=== PATIENT | female | born 1965 | race Caucasian/White ===

== ENCOUNTER 2018-07-30 07:30 | Inpatient (IN) | payer BC, OTHER ==
--- NOTE | 2018-07-28 23:23 | PREOPHP ---
DATE OF ADMISSION: 07/30/2018 She is coming on Sunday, the , at 7:30 in the morning for surgery. HISTORY OF PRESENT ILLNESS: This is a 53-year-old female, 2, para 2. The patient with a fam dalia history of ovarian cancer. The patient had tested positive for BRCA2 only, and she was referred by her PCP for ovarian excision with a history of COPD, nonsmoking for 1 year. She had been schedule d for TAHBSO due to her family history and for her testing. The patient will undergo full TAHBSO. T he patient had a right lower lobectomy with pneumothorax due to pneumothorax and she had a fusion of her neck and lower back, right hip fracture and she had a mini lap tubal ligation and she has a histo ry of rosacea. ALLERGIES: TORADOL AND TALWIN. MEDICATIONS: She is on gabapentin and albuterol. SOCIAL HISTORY: She is smoking marijuana. FAMILY HISTORY: Ovarian cancer. PHYSICAL EXAMINATION: GENERAL APPEARANCE: The patient is good ____ mouth and teeth held. VITAL SIGNS: Stable. The blood pressure 120/80, pulse is 80, respirations 16. She is afebrile. Darron elliott weighs 138 and she is 5 feet 4 inches. HEAD AND NECK: Normal. BREASTS: Soft, nontender, no masses. CHEST: Clear. HEART: Normal sinus rhythm. LUNGS: Clear. ABDOMEN: Soft, nontender, no masses. PELVIC: The external genitalia is atrophic. Cervix is healthy. Uterus retroverted, flexed, nonprol apsed, about 8 weeks' size, painful. Adnexa are negative. EXTREMITIES: Negative. REVIEW OF SYSTEMS: Heart disease is negative. Lung disease, GI problem is none present. No history of endocrine disease, urological, or neurological disease. She has a history of ____ rosacea. DIAGNOSES: BRCA2 positive family history of ovarian cancer; COPD; degenerative bone disease; cervica l fusion; lumbar fusion; right lower lung lobectomy, laparoscopic; right hip fracture; recurrent skin disease and status post mini lap tubal ligation. PLAN: She is undergoing a TAHBSO. The patient has been advised of the possible risks and possible c omplications of the procedure with her alternatives and options. Written information was provided. She had no more questions and agreed to go ahead with the procedure with full understanding and no mo re questions. Dictated By: RADHA KNIG/KYA Conf#: [id number] DID#: [id number]
[~2018-07-30] VITALS: Ht 162.6 cm; Wt 60.9 kg
[~2018-07-30 07:30] MED LIST: CARI350T29 PO; HYDR-3980 PO; HYDR-4011 PO; ONDA4TAB14 PO
--- NOTE | 2018-08-23 23:26 | PREOPHP ---
DATE OF ADMISSION: 07/30/2018 DATE OF PROCEDURE: The patient is coming on Sunday, the , for surgery. HISTORY OF PRESENT ILLNESS: This is a 53-year-old female, 2, para 2, patient with a history of ovarian cancer and testing positive for BRCA2 only. She was referred to me by her PCP for ovarian excision and also with a history of COPD, not smoking for 1 year but she had been smoking for a long time. The patient has been scheduled for a hysterectomy, BSO due to her family history and for her testing. The patient wanted to remove the uterus at the same time of the ovaries to avoid the possib ility of endometrial cancer. PAST MEDICAL HISTORY: She had a right lower lobectomy due to pneumothorax and she had a fusion of he r neck and lower back. She also had a right hip fracture and she had a minilaparotomy, tubal ligatio n. She also has a history of rosacea. ALLERGIES: SHE IS ALLERGIC TO TORADOL AND TALWIN. MEDICATIONS: She is on gabapentin and albuterol. SOCIAL HISTORY: She smokes marijuana. FAMILY HISTORY: Ovarian cancer. REVIEW OF SYSTEMS: Pertinent for COPD. She has no history of heart attacks, no history of neurologi mannie, urological or endocrine disease. No other problems. PHYSICAL EXAMINATION: VITAL SIGNS: Stable. The blood pressure is 120/80, pulse is 80, respirations 16. She is afebrile. She weighs 138 pounds and she is 5 feet 4 inches tall. HEAD AND NECK: Normal. BREASTS: Soft, nontender. No masses. CHEST: Clear with some COPD and decreased breathing sound. HEART: Normal sinus rhythm. LUNGS: Clear. ABDOMEN: Soft, nontender. No masses. PELVIC: With normal external genitalia with some atrophy. Cervix is healthy. Uterus retroverted/fl exed, nonprolapsed. Adnexa are negative. EXTREMITIES: Negative. DIAGNOSES: 1. BRCA2. 2. Positive family history of ovarian cancer. 3. Chronic obstructive pulmonary disease. 4. Degenerative bone disease. PLAN: She is going for a TAHBSO since she has no pelvic prolapse. She has been advised of the possi ble risks and possible complications of the procedure with her alternatives and options. Written inf ormation was provided. She agreed to go ahead with the procedure with full understanding and no more questions. Dictated By: RADHA KING/KYA Conf#: [id number] DID#: [id number]
[2018-08-28] VITALS (26 sets, daily range): BP systolic 117–172; BP diastolic 63–93; PULSE 46–74; RESP 12–25; Ht 162.6 cm; Wt 60.9 kg
[2018-08-28] MEDS ORDERED: GABA-526 PO (07:04)
[2018-08-28] MEDS ORDERED: ALBU18HF INHALATION (07:04)
[2018-08-28] MEDS ORDERED: MIDAZOLAM 1 MG/ML 2 ML INJ ONE (07:05)
[2018-08-28] MEDS ORDERED: LIDOCAINE 100 MG SYRINGE ONE (07:05)
[2018-08-28] MEDS ORDERED: SEVOFLURANE 15 MIN ONE (07:05)
[2018-08-28] MEDS ORDERED: SUCCINYLCHOLINE CHLORIDE 100 MG/5 ML SYG IV ONE (07:05)
[2018-08-28] MEDS ORDERED: PROPOFOL 20 ML ONE (07:05)
[2018-08-28] MEDS ORDERED: CEFAZOLIN 1 GM INJ ONE (07:05)
[2018-08-28] MEDS ORDERED: ROCURONIUM 50 MG INJ ONE ×2 (07:05)
[2018-08-28] MEDS ORDERED: ALBUTEROL 0.083% (NEB) 2.5 MG/3 ML AMP HHN STA (07:15)
--- NOTE | 2018-08-28 07:21 | PREAC ---
Date/Time of Note Date/Time of Note DATE: 08/28/18 TIME: 07:17 Anesthesia Eval and Record Evaluation Time Pre-Procedure Interview DATE: 08/28/18 TIME: 07:17 Age 53 Sex female NPO: 8 hrs Preoperative diagnosis brca positive Planned procedure [place]/BSO Past Medical History Past Medical History: Includes Cardio: Other (Exercise Tole[place], about 1 block before SOB, Denies CP) Pulm: COPD Neuro: Peripheral neuropathy, Other (Chronic Pain) Recreational drugs: Marijuana Surgery & Anesthesia Issues Hx of delayed emergence, No known issue Meds Anticoagulation: No Beta Argelia within 24 hr: No Reason Beta Argelia not given: Pt. not on B-Argelia Reported Medications Albuterol Sulfate* (Ventolin HFA*) 18 Gm Hfa.aer.ad, 2 PUFF INHALATION Q4H, #1 INHALER 08/28/18 Gabapentin* (Gabapentin*) 600 Mg Tablet, 600 MG PO TID, #90 TAB 08/28/18 Discontinued Reported Medications Hydrocodone/Acetaminophen ([place] 5-325 Tablet) 1 Each Tablet, 1 EACH PO Q6 PRN for PAIN, TAB 01/31/16 Carisoprodol* (Carisoprodol*) 350 Mg Tablet, 350 MG PO BID PRN for MUSCLE SPASM S, TAB 01/31/16 Discontinued Scripts Ondansetron (Ondansetron Odt) 4 Mg Tab.rapdis, 4 MG PO Q6H PRN for NAUSEA AND/OR VOMITING, #30 TAB Prov:TORRIE RED MD 01/31/16 Hydrocodone/Acetaminophen ([place] 10-325 Tablet) 1 Each Tablet, 1 TAB PO Q6H PRN for PAIN, #6 TAB Prov:TORRIE RED MD 01/31/16 Meds reviewed: Yes Allergies Coded Allergies: ketorolac (Verified Allergy, Mild, 08/28/18) pentazocine (Verified Allergy, Mild, 08/28/18) Allergies Reviewed: Yes Labs/Studies Labs Reviewed: Reviewed by anesthesiologist test: Negative Studies: ECG, CXR Pre-procedure Exam Airway: Adequate mouth opening Mallampati: Mallampati II Teeth: Abnormal (missing multiple) Lung: Normal Heart: Normal ASA Physical Status ASA physical status: 3 Emergency: None Planned Anesthetic General/MAC: ETT Pre-operative Attestations Prior to commencing anesthesia and surgery, the patient was re-evaluated, there was verification of: *The patient's identity *The results of appropriate recent lab work and preoperative vital signs *The above evaluation not changing prior to induction *Anesthetic plan, risk benefits, alternative and complications discussed with patient/family; questions answered; patient/family understands, accepts and wishes to proceed. ZEINAB CONTI MD August 28, 2018 07:21
--- NOTE | 2018-08-28 07:45 | HPN ---
Date/Time of Note Date/Time of Note DATE: 08/28/18 TIME: 07:45 Interval H&P Admission Note Pt. seen H&P reviewed: No system changes RADHA LANCE MD August 28, 2018 07:45
[2018-08-28] MEDS ORDERED: ONDANSETRON 4 MG INJ ONE (08:30)
[2018-08-28] MEDS ORDERED: DEXAMETHASONE 4 MG/ML 5 ML INJ ONE (08:30)
[2018-08-28] MEDS ORDERED: HYDROmorphONE 1 MG/5 ML IV SYRINGE IV PRN (09:00)
[2018-08-28] MEDS ORDERED: DIPHENHYDRAMINE 50 MG INJ IV PRN (09:00)
[2018-08-28] MEDS ORDERED: MEPERIDINE 25 MG INJ IV PRN (09:00)
[2018-08-28] MEDS ORDERED: ONDANSETRON 4 MG INJ IV PRN (09:00)
[2018-08-28] MEDS ORDERED: ALBUTEROL 0.083% (NEB) 2.5 MG/3 ML AMP HHN ONE (09:00)
[2018-08-28] MEDS ORDERED: SUGAMMADEX SODIUM 200 MG/2 ML VIAL IV ONE (09:28)
--- NOTE | 2018-08-28 09:57 | SIPON ---
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
[2018-08-28] MEDS ORDERED: HYDROCODONE/APAP (5/325) TAB PO PRN (10:00)
[2018-08-28] MEDS: PROVENTIL HFA 6.7GM INHALER INH SCH ×2 (10:00→14:00)
[2018-08-28] MEDS ORDERED: ZOLPIDEM 5 MG TAB PO PRN (10:00)
[2018-08-28] MEDS ORDERED: DIPHENHYDRAMINE 50 MG CAP PO PRN (10:00)
[2018-08-28] MEDS ORDERED: ONDANSETRON INJ 6 MG in DEXTROSE 5% 50 ML IVPB PRN (10:00)
[2018-08-28] MEDS ORDERED: hydrALAzine 20 MG INJ IV PRN (10:09)
[2018-08-28] MEDS: HYDROmorphONE 1 MG/5 ML IV SYRINGE IV PRN ×4 (10:14→11:36)
[2018-08-28] MEDS: LACTATED RINGER'S 1,000 ML IV SCH ×2 (10:18→16:47)
--- NOTE | 2018-08-28 10:41 | OPR ---
DATE OF OPERATION: 08/28/2018 PREOPERATIVE DIAGNOSES: BRCA 2 positive, family history of ovarian cancer, COPD, degenerative bone d isease. POSTPERATIVE DIAGNOSES: BRCA 2 positive, family history of ovarian cancer, COPD, degenerative bone d isease. OPERATION PERFORMED: Total abdominal hysterectomy, bilateral salpingo-oophorectomy. BUNCH TRIMMER MOLD: wafer fabrication technician. ANESTHESIOLOGIST: Dr. Montes. ANESTHESIA: General anesthesia. BLOOD LOSS: Less than 50 mL. COMPLICATIONS: None. DESCRIPTION OF PROCEDURE: The patient was given general anesthesia, placed in the lithotomy position and supine position. After the Coleman catheter was placed in the bladder. There were difficulties t o apply a larger Coleman catheter, apparently is obstructed. We only could put a very small Coleman cath eter in the bladder since there was pressure to accept the bigger catheter. This will be referred to a urologist. The abdomen was prepped and draped, and about 10 cm in length transverse incision 2 cm above the pubic bone was made. The abdomen was opened in layers without difficulties. Abdominal ca vity was reached. Exploration of the abdomen revealed that the uterus was very small. Tubes and ova tracy were normal. The self-retaining retractor was placed and the uterus was grasped with Kike clam p and the round ligaments were burned with LigaSure instrument to 3 levels of the green block and the anterior broad ligament was incised and the bladder was pushed down. The ovarian ligament and tube were burned next in both sides and then the dissection of the uterine arteries were done. The LigaSu re instrument was again used for the uterine vessels in both sides with good hemostasis. The cardina l ligaments and the uterosacral ligaments in both sides were clamped with Mya long clamp straight. The incision was done and the sutured of the ligaments were done with a #1 Vicryl and these sutures were held. The posterior area of the cervix was incised up to entering the vaginal canal posteriorl y to the cervix. The uterus and cervix was removed with the Anne scissors. The corners of the vagina were held and the anterior and posterior edge of the vagina was held. The vaginal corners wer e sutured with #1 Vicryl suture and these sutures were tied to the cardinal suture for support. This was done in both sides. The vagina was closed with interrupted sutures with #1 Vicryl and hemostasi s was achieved. The cavity was cleaned out and looked under water with no active bleeding at this ti me. At this time, the tubes and ovaries were removed by applying the LigaSure at the mesosalpinx are a and at the infundibulopelvic ligament burning the area that the LigaSure was grasping and removing the right tube and ovary first and then the left side. Hemostasis was good. The cavity was again wa shed up with water and revealed that there was no active bleeding. The hemostasis was good. The ure ters were tracked lower up to the areas of stitches with good peristalsis. The abdominal cavity was cleaned out and the laps were removed and the sponge counts and instrument counts were correct. The peritoneum was closed with a 2-0 Vicryl suture. The fascia was closed with an 0 PDS looped suture, 2 -0 Vicryl for the subcutaneous tissue, 3-0 Monocryl subcuticular to the skin, Dermabond and Steri-Str ips to the incision. The patient tolerated the procedure well and left the OR awake and stable. Spo nge counts and instrument counts were correct. Intravenous antibiotics were given for prophylaxis. Blood loss was minimal and the urine was clear at the end of the procedure. Dictated By: RADHA KING/NTS Conf#: [id number] DID#: [id number] CC: RADHA LANCE MD;*EndCC*
--- NOTE | 2018-08-28 11:14 | PAC ---
Date/Time of Note Date/Time of Note DATE: 08/28/18 TIME: 11:13 Post-Anesthesia Notes Post-Anesthesia Note Last documented vital signs Vital Signs Date Temp Pulse Resp B/P (MAP) Pulse Ox O2 O2 Flow FiO2 Time Delivery Rate 08/28/18 52 20 152/93 100 Nasal 2.0 10:53 (112) Cannula 08/28/18 98.0 10:02 08/28/18 21 07:28 Activity: WNL Respiratory function: WNL Cardiovascular function: WNL Mental status: Baseline Pain reasonably controlled: Yes Hydration appropriate: Yes Nausea/Vomiting absent: Yes ZEINAB CONTI MD August 28, 2018 11:13
[2018-08-28] MEDS: ALBUTEROL HFA 8 GM INHALER INH SCH ×2 (13:00→21:00)
[2018-08-28] MEDS ORDERED: GABAPENTIN 300 MG CAP PO SCH (13:00)
--- NOTE | 2018-08-28 13:06 | PAC ---
Date/Time of Note Date/Time of Note DATE: 08/28/18 TIME: 13:05 Post-Anesthesia Notes Post-Anesthesia Note Last documented vital signs Vital Signs Date Temp Pulse Resp B/P (MAP) Pulse Ox O2 O2 Flow FiO2 Time Delivery Rate 08/28/18 56 23 151/78 98 Nasal 11:38 (102) Cannula 08/28/18 2.0 11:08 08/28/18 98.0 10:02 08/28/18 21 07:28 Activity: WNL Respiratory function: WNL Cardiovascular function: WNL Mental status: Baseline Pain reasonably controlled: Yes Hydration appropriate: Yes Nausea/Vomiting absent: Yes ZEINAB CONTI MD August 28, 2018 13:05
[2018-08-28] MEDS: GABAPENTIN 300 MG CAP PO SCH ×2 (13:07→22:11)
[2018-08-28] MEDS: HYDROmorphONE 1 MG/ML SYG IV PRN ×3 (13:07→22:06)
[2018-08-28] MEDS: METOCLOPRAMIDE 10 MG TAB PO SCH ×2 (13:07→17:56)
[2018-08-28] MEDS: CEFAZOLIN 1 GM/50 ML (PMX) 50 ML IVPB SCH ×2 (14:35→22:09)
[2018-08-28] MEDS: HYDROCODONE/APAP (5/325) TAB PO PRN (16:14)
[2018-08-28] MEDS: ENOXAPARIN 30 MG/0.3 ML SYG SC SCH (22:21)
[2018-08-29] MEDS: METOCLOPRAMIDE 10 MG TAB PO SCH ×4 (00:21→17:58)
[2018-08-29] MEDS: HYDROmorphONE 1 MG/ML SYG IV PRN ×5 (01:57→22:43)
[2018-08-29 02:05] VITALS: BP 132/67; PULSE 71; RESP 18
[2018-08-29] MEDS: LACTATED RINGER'S 1,000 ML IV SCH ×3 (02:16→17:47)
[2018-08-29] MEDS: CEFAZOLIN 1 GM/50 ML (PMX) 50 ML IVPB SCH ×3 (06:07→21:10)
[2018-08-29] MEDS: HYDROCODONE/APAP (5/325) TAB PO PRN ×2 (06:48→18:01)
[2018-08-29 07:12] VITALS: BP 148/69; PULSE 52; RESP 18
[2018-08-29] MEDS: ALBUTEROL HFA 8 GM INHALER INH SCH ×7 (07:27→21:00)
[2018-08-29] MEDS: GABAPENTIN 300 MG CAP PO SCH ×3 (09:23→21:10)
[2018-08-29] MEDS: ENOXAPARIN 30 MG/0.3 ML SYG SC SCH ×2 (09:25→21:13)
[2018-08-29 14:46] VITALS: BP 125/58; PULSE 65; RESP 18
[2018-08-29 19:25] VITALS: BP 128/64; PULSE 64; RESP 20
[2018-08-30] MEDS: ALBUTEROL HFA 8 GM INHALER INH SCH ×2 (01:00→05:00)
[2018-08-30] MEDS: LACTATED RINGER'S 1,000 ML IV SCH ×2 (01:47→08:45)
[2018-08-30 02:10] VITALS: BP 128/65; PULSE 81; RESP 20
[2018-08-30] MEDS: HYDROCODONE/APAP (5/325) TAB PO PRN (04:04)
[2018-08-30] MEDS: METOCLOPRAMIDE 10 MG TAB PO SCH ×2 (06:02)
[2018-08-30] MEDS: CEFAZOLIN 1 GM/50 ML (PMX) 50 ML IVPB SCH (06:03)
[2018-08-30 08:09] VITALS: BP 126/58; PULSE 66; RESP 20
--- NOTE | 2018-08-30 08:11 | PD.PPDC ---
CORPORATE TRAINER Discharge Instruction Condition Hltrc1Th Patient Condition: Xavua8s Good Diet Naquk2Vn Diet: Kxocy4w Resume Regular Diet Activity/Restrictions [id number] Activity: Upqwf1n Normal Activity May Shower [id number] Restrictions: Swugs4b No Exercising No Lifting No Driving No Sexual Activity Nothing in the Vagina No [place] No Tampons, douche Wound/Drain Care Instructions [id number] Wound/Drain Care Instructions: Ktnkl5t Wash with soap and water Keep clean and dry Follow-up Follow-up with Physician: 1, Week/Weeks Return to clinic for [id number] HUMAN RESOURCE ANALYST Instructions: Kuaas5n Fever greater than 101 Chills Worsening abdominal pain Excessive Vaginal Bleeding More than 2 pads per hour Unable to tolerate diet [id number] Surgical Instructions: Pbuem6q Incisional Drainage Incisional Redness RADHA LANCE MD August 30, 2018 08:11
--- NOTE | 2018-08-30 08:18 | PN ---
Date/Time of Note Date/Time of Note DATE: 08/29/18 TIME: 08:16 Assessment/Plan Lines/Catheters IV Catheter Type (from Nrsg): Saline Lock Coleman in Place (from Nrsg): Yes Subjective 24 Hr Interval Summary Day 1 was [place]/BSO due to BRCA 2+ Feels good, afebrile and trying to ambulate. Pain controlled with medications Incision dry Surgery explained to patient Subjective hx not possible: pt non-verbal Constitutional: no complaints Feeding: advancing diet Pain Control: mild Detailed Summary Eyes: no complaints ENT: no complaints Respiratory: no complaints Cardiovascular: no complaints Gastrointestinal: no complaints Genitourinary: no complaints Musculoskeletal: no complaints Skin: no complaints Neurologic: no complaints Endocrine: no complaints Lymphatic: no complaints Psychological: no complaints, nl mood/affect Immunologic: no complaints Exam/Review of Systems Vital Signs Vitals Vital Signs Date Temp Pulse Resp B/P (MAP) Pulse Ox O2 O2 Flow FiO2 Time Delivery Rate 08/30/18 98.1 81 20 128/65 92 Room Air 02:10 (86) 08/29/18 2.0 08:00 08/28/18 21 07:28 Intake and Output 08/29/18 08/29/18 08/30/18 1515:00 23:00 07:00 IntakeIntake Total 1000 ml 2180 ml 780 ml BalanceBalance 1000 ml 2180 ml 780 ml Exam Constitutional: alert, oriented, well developed Psych: no complaints, nl mood/affect Head: normocephalic, atraumatic Eyes: nl conjunctiva, EOMI, nl lids, nl sclera ENMT: nl external ears & nose, nl lips & teeth, nl nasal mucosa & septum, m ucosa pink and moist Neck: supple, non-tender Respiratory: clear to auscultation, normal air movement Cardiovascular: regular rate and rhythm, nl pulses Gastrointestinal: soft, nl liver, spleen, non-tender Musculoskeletal: nl extremities to inspection, nl gait and stance Extremities: normal pulses Neurological: MANAGER ENVIRONMENTAL HEALTH II-XII intact, nl mental status, nl speech, nl strength Skin: nl turgor, rash or lesions Lymph: nl lymph nodes Results Result Diagram: 08/29/18 0442 08/29/18 044 RADHA LANCE MD August 30, 2018 08:18
--- NOTE | 2018-08-30 08:22 | DS ---
Date/Time of Note Date/Time of Note DATE: 08/30/18 TIME: 08:19 Discharge Summary Admission/Discharge Info Admit Date/Time August 28, 2018 at 06:19 Discharge Date/Time August 30, 2018 Discharge Diagnosis Total abdominal hysterectomy bilateral salpingo-oophorectomy due to genetic positive BRCA2 Patient Condition: Good Procedures [place]/BSO Hx of Present Illness 53 years old female referred to me for hysterectomy with BSO due to genetic positive and family history of cancer Patient with COPD and osteoporosis Hospital Course Patient was afebrile ambulatory on the first day Laboratory testing was normal She was controlled on her pain with pain meds She was tolerating diet had bowel movement on the second postoperative day and she requested to go home to her 's care. She was ambulatory doing well for which we discharged her Home Meds Reported Medications Albuterol Sulfate* (Ventolin HFA*) 18 Gm Hfa.aer.ad, 2 PUFF INHALATION Q4H, #1 INHALER 08/28/18 Gabapentin* (Gabapentin*) 600 Mg Tablet, 600 MG PO TID, #90 TAB 08/28/18 Discontinued Reported Medications Hydrocodone/Acetaminophen ([place] 5-325 Tablet) 1 Each Tablet, 1 EACH PO Q6 PRN for PAIN, TAB 01/31/16 Carisoprodol* (Carisoprodol*) 350 Mg Tablet, 350 MG PO BID PRN for MUSCLE SPASMS, TAB 01/31/16 Discontinued Scripts Ondansetron (Ondansetron Odt) 4 Mg Tab.rapdis, 4 MG PO Q6H PRN for NAUSEA AND/OR VOMITING, #30 TAB Prov:TORRIE RED MD 01/31/16 Hydrocodone/Acetaminophen ([place] 10-325 Tablet) 1 Each Tablet, 1 TAB PO Q6H PRN for PAIN, #6 TAB Prov:TORRIE RED MD 01/31/16 Follow-up Plan 1 week in the office or any time in my office Instructions were given to how to contact me at any time any day Primary Care Provider Care Physician No Primary Time spent on discharge: < 30 minutes RADHA LANCE MD August 30, 2018 08:22
[2018-08-30 08:33] VITALS: BP 154/96; PULSE 110; RESP 20
[2018-08-30] MEDS: GABAPENTIN 300 MG CAP PO SCH (08:41)
[2018-08-30] MEDS: ENOXAPARIN 30 MG/0.3 ML SYG SC SCH (08:44)
== END 2018-08-30 10:34 | disposition home or self-care (01) | DRG 941 ==
LOC: REC 08-28 06:19 → MS1 08-28 11:46
PROVIDERS: ADMIT Obstetrics & Gynecology; ATTEND Obstetrics & Gynecology
PROC: 0UT70ZZ Resection of Bilateral Fallopian Tubes, Open Approach (ICD-10-PCS; 2018-08-28)
PROC: 0UT20ZZ Resection of Bilateral Ovaries, Open Approach (ICD-10-PCS; 2018-08-28)
PROC: 0UT90ZZ Resection of Uterus, Open Approach (ICD-10-PCS; principal; 2018-08-28 07:30)
DX: Z15.02 Genetic susceptibility to malignant neoplasm of ovary (principal); G62.9 Polyneuropathy, unspecified; J44.9 Chronic obstructive pulmonary disease, unspecified; M19.90 Unspecified osteoarthritis, unspecified site; G89.29 Other chronic pain; F17.200 Nicotine dependence, unspecified, uncomplicated; Z80.41 Family history of malignant neoplasm of ovary
CPT/HCPCS: 80051; 82565; 84520; 85025; 86850; 86900; 86901; 87086; 88305; 94664; J0690; J1100; J1170; J1650; J2001; J2175; J2250; J2405; J3010; J7120

== ENCOUNTER 2018-09-23 16:56 | Emergency (ER) | payer OTHER ==
[~2018-09-23] VITALS: Wt 60.9 kg
[~2018-09-23 16:56] MED LIST changes: +ALBU18HF INHALATION; -CARI350T29 PO; +GABA-526 PO; -HYDR-3980 PO; -HYDR-4011 PO; -ONDA4TAB14 PO
[2018-09-23] MEDS ORDERED: morphine 4 MG/ML VIAL IV STA (18:28)
[2018-09-23] MEDS ORDERED: SOD CHLORIDE 0.9% 1,000 ML IV STA (18:28)
[2018-09-23] MEDS ORDERED: ONDANSETRON 4 MG INJ IV STA (18:28)
[2018-09-23] MEDS ORDERED: HYDROmorphONE 2 MG/ML SYG IV STA (20:26)
[2018-09-23] MEDS ORDERED: ACET325T33 PO (21:06)
[2018-09-23] MEDS ORDERED: POLY17PO6 PO (21:06)
[2018-09-23 21:20] VITALS: BP 118/77; PULSE 70; RESP 18
--- NOTE | 2018-09-23 21:40 | ERD ---
ER Documentation Chief Complaint Chief Complaint LOWER ABD PAIN AND DYSURIA FOR THE PAST FEW WKS. WORSE LAST FEW DAYS.NO [place] HPI 53-year-old female presented to the emergency department complaining of suprapubic pain bilaterally associated with dysuria for the past 3 weeks but significantly worsening today. She reports 10/10 pain which is constant. She took [place] and Tylenol 3 without significant relief. She denies any nausea, vomiting, diarrhea, abdominal pain, back pain, or other symptoms at this time. She states she was recently diagnosed by her doctor with urinary tract infection and is on day 5 out of 7 of ciprofloxacin 500 mg twice daily. No other symptoms reported currently. ROS All systems reviewed and are negative except as per history of present illness. Medications Home Meds Active Scripts Acetaminophen* (Tylenol*) 325 Mg Tablet, 2 TAB PO Q6 PRN for PAIN AND OR ELEVATED TEMP, #20 TAB Prov:CRYSTAL DESOUZA PA-C 09/23/18 Polyethylene Glycol* (Miralax*) 17 Gm Powd.pack, 17 GM PO DAILY, #7 Prov:CRYSTAL DESOUZA PA-C 09/23/18 Reported Medications Albuterol Sulfate* (Ventolin HFA*) 18 Gm Hfa.aer.ad, 2 PUFF INHALATION Q4H, #1 INHALER 08/28/18 Gabapentin* (Gabapentin*) 600 Mg Tablet, 600 MG PO TID, #90 TAB 08/28/18 Allergies Allergies: Coded Allergies: ketorolac (Verified Allergy, Mild, 08/28/18) pentazocine (Verified Allergy, Mild, 08/28/18) PMhx/Soc History of Surgery: Yes (TUBAL LIGATION,RT HIP SX,NECK+BACK SX,MALIK CARPAL TUNNEL, VATS SX) Anesthesia Reaction: No Hx Neurological Disorder: No Hx Respiratory Disorders: Yes (COPD) Hx Cardiac Disorders: No Hx Psychiatric Problems: No Hx Miscellaneous Medical Probl: No Hx Alcohol Use: No Hx Substance Use: Yes (MARIJUANA) Hx Tobacco Use: Yes Smoking Status: Former smoker FmHx Family History: No diabetes Physical Exam Vitals Vital Signs Date Temp Pulse Resp B/P (MAP) Pulse Ox O2 O2 Flow FiO2 Time Delivery Rate 09/23/18 97.7 70 18 118/77 98 Room Air 21:20 (91) 09/23/18 98.0 96 20 137/98 100 17:01 (111) Physical Exam Const: Patient is crying and in distress secondary to pain. Head: Atraumatic Eyes: Normal Conjunctiva ENT: Normal External Ears, Nose and Mouth. Neck: Full range of motion. No meningismus. Resp: Clear to auscultation bilaterally Cardio: Regular rate and rhythm, no murmurs Abd: Soft, non distended. Normal bowel sounds. Significantly tender to the suprapubic region bilaterally. No rebound tenderness or guarding. No McBurney's point tenderness. Skin: No petechiae or rashes Ext: No cyanosis, or edema Neur: Awake and alert Psych: Normal Mood and Affect Result Diagram: 09/23/18 1926 09/23/18 185 Results 24 hrs Laboratory Tests Test 09/23/18 18:52 09/23/18 19:26 Prothrombin Time 11.0 Sec Prothrombin Time Ratio 0.9 INR International Normalized Ratio 0.78 Activated Partial Thromboplast Time 20.9 Sec Urine Color YELLOW Urine Clarity SLIGHTLY CLOUDY Urine pH 7.0 Urine Specific [place] 1.011 Urine Ketones NEGATIVE mg/dL Urine Nitrite NEGATIVE mg/dL Urine Bilirubin NEGATIVE mg/dL Urine Urobilinogen NEGATIVE mg/dL Urine Leukocyte Esterase 2+ Michael/ul Urine Microscopic RBC 2 /HPF Urine Microscopic WBC 20 /HPF Urine Squamous Epithelial Cells MODERATE /HPF Urine Amorphous Crystals MODERATE /HPF Urine Bacteria FEW /HPF Urine Mucus FEW /HPF Urine Hemoglobin 1+ mg/dL Urine Glucose NEGATIVE mg/dL Urine Total Protein NEGATIVE mg/dl Sodium Level 141 mmol/L Potassium Level 3.6 mmol/L Chloride Level 102 mmol/L Carbon Dioxide Level 29 mmol/L Anion Gap 10 Blood Urea Nitrogen 14 mg/dl Creatinine 0.84 mg/dl Est Glomerular Filtrat Rate mL/min > 60 mL/min Glucose Level 78 mg/dl Calcium Level 9.7 mg/dl Total Bilirubin 0.6 mg/dl Direct Bilirubin 0.00 mg/dl Indirect Bilirubin 0.6 mg/dl Aspartate Amino Transf (AST/SGOT) 20 IU/L Alanine Aminotransferase (ALT/SGPT) 13 IU/L Alkaline Phosphatase 82 IU/L Total Protein 7.6 g/dl Albumin 4.3 g/dl Globulin 3.30 g/dl Albumin/Globulin Ratio 1.30 Lipase 525 U/L White Blood Count 8.5 10^3/ul Red Blood Count 4.25 10^6/ul Hemoglobin 13.0 g/dl Hematocrit 39.3 % Mean Corpuscular Volume 92.5 fl Mean Corpuscular Hemoglobin 30.6 pg Mean Corpuscular Hemoglobin Concent 33.1 g/dl Red Cell Distribution Width 13.2 % Platelet Count 311 10^3/UL Mean Platelet Volume 9.0 fl Immature Granulocytes % 0.400 % Neutrophils % 63.3 % Lymphocytes % 22.2 % Monocytes % 9.0 % Eosinophils % 4.3 % Basophils % 0.8 % Nucleated Red Blood Cells % 0.0 /100WBC Immature Granulocytes # 0.030 10^3/ul Neutrophils # 5.4 10^3/ul Lymphocytes # 1.9 10^3/ul Monocytes # 0.8 10^3/ul Eosinophils # 0.4 10^3/ul Basophils # 0.1 10^3/ul Nucleated Red Blood Cells # 0.0 10^3/ul Current Medications Medications Dose Sig/Iveth Start Time Status Last (Trade) Ordered Route PRN Stop Time Admin Dose Reason Admin Sodium 1,000 ml @ Q1H STAT 09/23/18 DC 09/23/18 Chloride 1,000 mls/hr IV 18:28 09/23/18 19:12 19:27 Morphine 4 mg ONCE STAT 09/23/18 DC 09/23/18 Sulfate IV 18:28 09/23/18 19:11 (morphine) 18:31 Ondansetron 4 mg ONCE STAT 09/23/18 DC 09/23/18 HCl (Zofran IV 18:28 09/23/18 19:12 Inj) 18:31 1 mg ONCE STAT 09/23/18 DC 09/23/18 Hydromorphone IV 20:26 09/23/18 20:37 HCl 20:27 (Dilaudid) [place] [id number] Radiology Main Line: [phone] DIAGNOSTIC IMAGING REPORT Patient: SIXTO FOLEY : 1965 Age: 53 Sex: F MR #: [id number] DOS: 09/23/18 1828 Ordering MD: CRYSTAL DESOUZA PA-C Location: [facility] Room/Bed: PROCEDURE: CT abdomen and pelvis without contrast. CLINICAL INDICATION: Abdominal pain. TECHNIQUE: CT scan of the abdomen and pelvis without contrast was performed on a multi-slice CT scanner . Sagittal and coronal reformatted images were obtained from the axial source images. One or more of the following dose reduction techniques were used: - Automated exposure control. - Adjustment of the mA and/or kV according to patient size. - Use of iterative reconstruction technique. DICOM images are available DLP 547.4 mGycm. CTDIvol 9.86 mGy COMPARISON: 04/19/2008 FINDINGS: Fine detail of the soft tissues is limited secondary to the lack of IV contrast. Evaluation for enhancing lesions cannot be performed. Lower thorax: Mild bibasilar atelectasis. Coronary artery calcifications are seen in the heart. Liver: There is uniform density of the liver with no gross focal lesion. Biliary: The gallbladder is unremarkable without surrounding inflammation. No biliary dilatation. Pancreas: Homogeneous density of the pancreas without visible focal lesion or cystic abnormality. There is no pancreatic ductal dilatation. Spleen: Unremarkable without enlargement or focal lesion. Adrenal Glands: The adrenal glands are within normal limits without mass. Urinary: The kidneys are symmetric in size bilaterally. There are no visible renal or ureteral stones. There is no hydronephrosis. Gastrointestinal: There is a fecal filled colon.No evidence of bowel obstruction or inflammation. There is no appendicitis. Lymph nodes: There are no enlarged lymph nodes. Vascular: There is aortic atherosclerosis without aneurysmal dilatation. Peritoneum/mesentery: No free fluid or free air. Reproductive organs: The pelvic organs are not visualized. Musculoskeletal: Degenerative changes are seen in the lumbar spine with no acute osseous abnormality. There are surgical changes of overt of the right acetabulum from prior ORIF. Surgical changes of the lower lumbar spine are also present. Other: None IMPRESSION: There is a fecal filled colon.No evidence of bowel obstruction or inflammation. There is no appendicitis. Surgical changes of the lower lumbar spine and right acetabulum and Atherosclerotic disease is present. No renal or ureteral calculi with no evidence of hydronephrosis. RPTAT: AA .Shukri Florentino MD, Date Time Electronically viewed and signed by .Shukri Florentino MD, on 09/23/2018 20:47 .J/ CC: CRYSTAL DESOUZA PA-C [id number] Procedures/MDM 53-year-old female presenting to the emergency department complaining of severe suprapubic pain intermittently for the past 3 weeks but worsening today. Patient was immediately placed into a stretcher and was administered IV morphine. Approximately 1 hour after administration of morphine she was still complaining of significant pain and was tender to palpation in the suprapubic region and was tearful. She was given 1 mg IV Dilaudid and her pain improved. CBC: no e/o of systemic infection or severe anemia CMP: no e/o severe acidosis, alkalosis, renal failure, diabetic ketoacidosis, liver disease Lipase: no e/o pancreatitis PT/INR: normal coagulation Urine: Evidence of urinary tract infection. CT abdomen and pelvis without contrast: No significant acute abnormalities. Full report interpreted by the radiologist may be viewed above. Medical decision making: Work-up most consistent with a UTI and constipation. Patient's gastrointestinal symptoms have stabilized while in the department. No evidence of severe dehydration, sepsis, or surgical abdomen. Extensive discussion with family and patient that occult disease cannot be ruled out. 8 hour recheck for repeat abdominal exam is planned. No evidence of life-threatening pathology at time of discharge. Pt/family in agreement with discharge plan/diagnosis. Pt/family advised to return immedia tely with any new or worsening symptoms. Follow-up with primary care physician within the next 1-2 days. Patient's blood pressure was elevated (>120/80) but appears stable without evidence of hypertension emergency or urgency. The patient is to follow-up and pursue outpatient monitoring and therapy with their primary care physician within 1 week and return immediately if they have any new, worsening, or concerning symptoms. Disclaimer: Inadvertent spelling and grammatical errors are likely due to EHR/dictation software use and do not reflect on the overall quality of patient care. Also, please note that the electronic time recorded on this note does not necessarily reflect the actual time of the patient encounter. Departure Diagnosis: Primary Impression: UTI (urinary tract infection) Condition: Fair Patient Instructions: Understanding Urinary Tract Infections (UTIs) Referrals: COMM[facility] YOU HAVE RECEIVED A MEDICAL SCREENING EXAM AND THE RESULTS INDICATE THAT YOU DO NOT HAVE A CONDITION THAT REQUIRES URGENT TREATMENT IN THE EMERGENCY DEPARTMENT. FURTHER EVALUATION AND TREATMENT OF YOUR CONDITION CAN WAIT UNTIL YOU ARE SEEN IN YOUR DOCTORS OFFICE WITHIN THE NEXT 1-2 DAYS. IT IS YOUR RESPONSIBILITY TO MAKE AN APPOINTMENT FOR FOLOW-UP CARE. IF YOU HAVE A PRIMARY DOCTOR --you should call your primary doctor and schedule an appointment IF YOU DO NOT HAVE A PRIMARY DOCTOR YOU CAN CALL OUR PHYSICIAN REFERRAL HOTLINE AT IF YOU CAN NOT AFFORD TO SEE A PHYSICIAN YOU CAN CHOSE FROM THE FOLLOWING [facility] CLINICS [facility] [address] [facility]. [facility] [facility] [address] [facility] [facility] [address] [facility] [address] [facility]. [facility] [address] [facility]. [facility]. [address] Additional Instructions: Call your primary care doctor TOMORROW for an appointment during the next 1-2 days.See the doctor sooner or return here if your condition worsens before your appointment time. CRYSTAL DESOUZA PA-C Sep 23, 2018 21:40
== END 2018-09-23 21:21 | disposition home or self-care (01) ==
LOC: FTE 16:56
DX: N39.0 Urinary tract infection, site not specified (principal); J44.9 Chronic obstructive pulmonary disease, unspecified; Z87.891 Personal history of nicotine dependence
CPT/HCPCS: 36415; 74176; 80053; 81001; 83690; 85025; 85610; 85730; 96361; 96374; 96375; J1170; J2270; J2405; J7030; Z7502